=== PATIENT | male | born 2000 | race Caucasian/White ===

== ENCOUNTER 2020-07-02 19:51 | Emergency (ER) | payer OTHER ==
[~2020-07-02 19:51] MED LIST: PROTONIX40 MG PO; ZOFRAN4 MG PO
[2020-07-02 20:56] LABS: HEMOGLOBIN 15.9 gm/dl (14.0-17.5); RED BLOOD COUNT 5.24 M/UL (4.20-5.50); WHITE BLOOD COUNT 11.7 K/UL (4.5-11.0)
[2020-07-02 21:16] LABS: BUN/CREATININE RATIO 16 (0-10)
[2020-07-02] MEDS ORDERED: EPIPEN 2-P0.3 MG/0.3 INJ (22:38)
== END 2020-07-02 22:44 | disposition home or self-care (01) ==
LOC: ER1 19:51
PROVIDERS: Emergency Medicine
DX: L50.0 Allergic urticaria (principal); Z79.899 Other long term (current) drug therapy
CPT/HCPCS: 80053; 81001; 83690; 83735; 85025; 85610; 85730; 96365; 96375; 99282; J1200; J2930

== ENCOUNTER 2020-08-29 09:52 | Emergency (ER) | payer OTHER ==
[~2020-08-29 09:52] MED LIST changes: +EPIPEN 2-P0.3 MG/0.3 INJ
[2020-08-29 11:30] LABS: HEMOGLOBIN 16.3 gm/dl (14.0-17.5); RED BLOOD COUNT 5.43 M/UL (4.20-5.50); WHITE BLOOD COUNT 6.9 K/UL (4.5-11.0)
[2020-08-29 11:53] LABS: BUN/CREATININE RATIO 13 (0-10)
== END 2020-08-29 16:25 | disposition home or self-care (01) ==
LOC: ER1 09:52
PROVIDERS: Emergency Medicine
DX: R51.9 Headache, unspecified (principal); E87.6 Hypokalemia; G40.909 Epilepsy, unspecified, not intractable, without status epilepticus; Z79.899 Other long term (current) drug therapy
CPT/HCPCS: 70450; 70551; 71045; 80053; 82550; 82553; 83874; 84484; 85025; 85610; 85730; 93005; 99285

== ENCOUNTER 2021-12-22 15:45 | Emergency (ER) | payer OTHER ==
[2021-12-22 16:34] LABS: HEMOGLOBIN 15.2 gm/dl (14.0-17.5); RED BLOOD COUNT 4.94 M/UL (4.20-5.50); WHITE BLOOD COUNT 13.3 K/UL (4.5-11.0)
[2021-12-22 17:06] LABS: BUN/CREATININE RATIO 12 (0-10)
[2021-12-22] MEDS ORDERED: MECLIZINE HCL25 MG PO (19:45)
[2021-12-22] MEDS ORDERED: ONDANSETRON ODT4 MG SL (19:45)
== END 2021-12-22 17:20 | disposition home or self-care (01) ==
LOC: ER1 15:45
PROVIDERS: Physician Assistant
DX: R10.84 Generalized abdominal pain (principal); R11.2 Nausea with vomiting, unspecified; R42 Dizziness and giddiness; R60.0 Localized edema; K21.9 Gastro-esophageal reflux disease without esophagitis; Z79.899 Other long term (current) drug therapy
CPT/HCPCS: 80053; 80175; 81001; 83690; 85025; 87081; 87880; 96374; 99284; J2405; Q9967